=== PATIENT | male | born 1940 | race Caucasian/White ===

== ENCOUNTER 2016-04-15 | Outpatient (CLI) | payer MEDICARE, OTHER | END 2016-04-15 14:46 | disposition home or self-care (01) ==

== ENCOUNTER 2016-04-29 13:45 | Outpatient (CLI) | payer MEDICARE, OTHER | END 2016-04-29 13:46 | disposition home or self-care (01) | DX: J44.9 Chronic obstructive pulmonary disease, unspecified (principal); J84.112 Idiopathic pulmonary fibrosis; I27.2 Other secondary pulmonary hypertension; F41.9 Anxiety disorder, unspecified; R19.7 Diarrhea, unspecified; M19.049 Primary osteoarthritis, unspecified hand; M19.039 Primary osteoarthritis, unspecified wrist; R63.4 Abnormal weight loss; R11.10 Vomiting, unspecified; R68.81 Early satiety; K21.9 Gastro-esophageal reflux disease without esophagitis; Z99.81 Dependence on supplemental oxygen; Z79.1 Long term (current) use of non-steroidal anti-inflammatories (NSAID); Z66 Do not resuscitate; Z51.5 Encounter for palliative care ==

== ENCOUNTER 2016-05-11 | Outpatient (CLI) | payer MEDICARE, OTHER | END 2016-05-11 13:01 | disposition home or self-care (01) ==

== ENCOUNTER 2016-05-18 14:00 | Outpatient (CLI) | payer MEDICARE, OTHER | END 2016-05-18 14:01 | disposition home or self-care (01) | DX: J84.112 Idiopathic pulmonary fibrosis (principal); I27.2 Other secondary pulmonary hypertension; Z99.81 Dependence on supplemental oxygen; R68.81 Early satiety; R63.0 Anorexia; K40.20 Bilateral inguinal hernia, without obstruction or gangrene, not specified as recurrent; M19.042 Primary osteoarthritis, left hand; M19.041 Primary osteoarthritis, right hand; K21.9 Gastro-esophageal reflux disease without esophagitis; R53.83 Other fatigue; R10.11 Right upper quadrant pain; F41.9 Anxiety disorder, unspecified; Z51.5 Encounter for palliative care ==